=== PATIENT | female | born 1975 | race Caucasian/White ===

== ENCOUNTER → 2017-03-12 | Outpatient (CLI) | payer BC ==
--- NOTE | 2017-03-12 12:11 | MM ---
Reason for exam: clinical finding. Last mammogram was performed 10 years and 7 months ago. History: Family history of breast cancer in mother at age 42. Taking hormonal contraceptives for 2 years. Indicated problem(s): other indicated problem in the right breast. Physical Findings: Nurse Summary: 1cm nodule in the right breast at 4-5 o'clock (nurse amilcar). MG 3D Diag Mammo W/Cad JAIRON Bilateral CC, MLO, and XCCM view(s) were taken. Prior study comparison: July 31, 2006, CAD bilateral diagnostic mammogram. The breast tissue is heterogeneously dense. This may lower the sensitivity of mammography. No significant new findings when compared with previous films. These results were verbally communicated with the patient and result sheet given to the patient on 03/12/17. ASSESSMENT: Benign, BI-RAD 2 RECOMMENDATION: Routine screening mammogram of both breasts in 1 year.
--- NOTE | 2017-03-12 12:13 | USB ---
Reason for exam: clinical finding. History: Family history of breast cancer in mother at age 42. Taking hormonal contraceptives for 2 years. Indicated problem(s): palpable abnormality in the right breast. US Breast RT Right breast ultrasound includes all four quadrants, the retroareolar region and axilla. Finding demonstrates a 1.2 x 0.7 x 1.1cm lobular, mixed, hypoechoic lesion at palpable at 4 o'clock. These results were verbally communicated with the patient and result sheet given to the patient on 03/12/17. ASSESSMENT: Suspicious, BI-RAD 4 RECOMMENDATION: Aspiration of the right breast. Cyst aspiration scheduled for 03/23/17 at 8:00. PRELIMINARY REPORT CALLED AND FAXED TO DR. LESTER ON 03/12/17 /TMP.
== END ==
LOC: RADMAMWWP 11:06
PROVIDERS: ATTEND Obstetrics & Gynecology
DX: N63 Unspecified lump in breast (principal)
CPT/HCPCS: 76641; G0204; G0279

== ENCOUNTER → 2017-03-12 | Outpatient (CLI) | payer BC | LOC: RADUSWWP 11:25 | PROVIDERS: ATTEND Obstetrics & Gynecology | DX: N63 Unspecified lump in breast (principal); Z53.9 Procedure and treatment not carried out, unspecified reason ==

== ENCOUNTER → 2019-09-26 | Outpatient (CLI) | payer BC ==
--- NOTE | 2019-09-26 12:35 | MM ---
Reason for exam: screening (asymptomatic). Last mammogram was performed 2 years and 6 months ago. History: Family history of breast cancer in mother at age 42. Taking hormonal contraceptives for 2 years. Physical Findings: A clinical breast exam by your physician is recommended on an annual basis and results should be correlated with mammographic findings. MG 3D Screening Mammo W/Cad Bilateral CC and MLO view(s) were taken. Prior study comparison: March 12, 2017, bilateral MG 3d diag mammo w/cad JAIRON. July 31, 2006, CAD bilateral diagnostic mammogram. The breast tissue is extremely dense which could obscure a lesion on mammography. Finding: There are two intermediate concern, suspicious grouped/clustered calcifications in the upper outer quadrant, anterior position of the left breast. New finding since March 12, 2017. ASSESSMENT: Incomplete: need additional imaging evaluation, BI-RAD 0 RECOMMENDATION: Special view mammogram of the left breast. If lesion persists on supplemental views, image directed ultrasound is recommended. [facility] will attempt to contact patient to return for supplemental views and ultrasound if indicated.
--- NOTE | 2019-09-26 12:38 | MM ---
Reason for exam: additional evaluation requested from abnormal screening. Last mammogram was performed 2 years and 6 months ago. History: Family history of breast cancer in mother at age 42. Taking hormonal contraceptives for 2 years. MG 3D Work Up W/Cad LT CC with magnification, ML with magnification, and ML view(s) were taken of the left breast. Prior study comparison: March 12, 2017, bilateral MG 3d diag mammo w/cad JAIRON. The breast tissue is extremely dense which could obscure a lesion on mammography. Finding: There are two grouped/clustered, fine calcifications in the upper outer quadrant, anterior position of the left breast. These results were verbally communicated with the patient and result sheet given to the patient on 09/26/19. ASSESSMENT: Suspicious, BI-RAD 4 RECOMMENDATION: Stereotactic core biopsy of the left breast. Called Dr. Mariee's office with mammographic findings. Biopsy schedueld for 09/30/19 at 2:00. PRELIMINARY REPORT CALLED AND FAXED TO DR. MARIEE ON 09/26/19.
== END | disposition home or self-care (01) ==
LOC: RADMAMWWP 08:30
PROVIDERS: ATTEND Obstetrics & Gynecology
DX: Z12.31 Encounter for screening mammogram for malignant neoplasm of breast (principal); R92.8 Other abnormal and inconclusive findings on diagnostic imaging of breast; Z80.3 Family history of malignant neoplasm of breast
CPT/HCPCS: 77061; 77063; 77065; 77067

== ENCOUNTER → 2019-09-30 | Day surgery (SDC) | payer BC ==
[2019-09-30 13:22] VITALS: RESP 16
[2019-09-30 15:17] VITALS: BP 118/70; PULSE 71; TEMP 98.1
--- NOTE | 2019-10-02 08:01 | MM ---
Stereotactic Mammotome core biopsy left breast 2 sites. HISTORY: Calcifications at 2 sites The 2 groups of microcalcifications in question within the left breast were targeted by the undersigned. Procedure was performed by the undersigned. Informed consent was obtained and all of the patients questions were answered. The standard sterile technique was utilized and appropriate local anesthesia was obtained with 1% lidocaine x 2. Deep anesthesia was obtained with 1% lidocaine and epinephrine at each site. Mammotome probe was advanced and multiple core samples were obtained at each site and sent to pathology for interpretation. Microclip markers were deployed at the sites of biopsy. Post procedural mammogram demonstrates appropriate deployment of radiopaque clip markers. The patient tolerated the procedure well and left the department in stable condition. Pathology results are pending. IMPRESSION: Successful stereotactic core biopsy left breast at 2 sites with pathology results pending. Site labeled as upper outer quadrant approximately 4 cm from the nipple. Site B is also within the upper outer quadrant approximately 3.3 cm from the nipple. Pathology Results: High Risk A. LEFT BREAST, SITE A SUPERIOR, STEREOTACTIC CORE BIOPSY: Flat epithelial atypia/atypical ductal hyperplasia (FEA/ADH) with associated calcifications in a background of fibrocystic changes including sclerosing adenosis and fibrosis. See note. B. LEFT BREAST, SITE B ANTERIOR, STEREOTACTIC CORE BIOPSY: Flat epithelial atypia/atypical ductal hyperplasia (FEA/ADH) with associated calcifications in a background of fibrocystic changes including sclerosing adenosis and fibrosis. See note. Recommendation Surgical consult of the left breast. Excision recommended for FEA/ADH at both biopsy sites. [facility]
== END ==
LOC: RADMAMWWP 13:11
PROVIDERS: ATTEND Obstetrics & Gynecology
DX: N60.22 Fibroadenosis of left breast (principal); N60.32 Fibrosclerosis of left breast; N60.92 Unspecified benign mammary dysplasia of left breast
CPT/HCPCS: 88305; 19081; 19082; A4648; J2001

== ENCOUNTER → 2021-02-08 | Outpatient (CLI) | payer BC ==
--- NOTE | 2021-02-08 10:05 | XR ---
EXAMINATION TYPE: XR chest 2V DATE OF EXAM: 02/08/2021 COMPARISON: 09/27/2012 HISTORY: Preoperative spine surgery TECHNIQUE: Frontal and lateral views of the chest are obtained. FINDINGS: There is no focal air space opacity, pleural effusion, or pneumothorax seen. The cardiac silhouette size is within normal limits. The osseous structures are intact. IMPRESSION: No acute cardiopulmonary process.
[2021-02-08 10:48] LABS: Appearance,Urine Clear (Clear); Bacteria,Urine Occasional /hpf; Bilirubin,Urine Negative (Negative); Blood,Urine Negative (Negative); Color,Urine Yellow; Glucose,Urine (UA) Negative (Negative); Ketones,Urine Negative (Negative); Leukocyte Esterase,Urine Small (Negative); Mucus,Urine Occasional /hpf; Nitrite,Urine Negative (Negative); PH, Urine 5.5 (5.0-8.0); Protein,Urine Negative (Negative); RBC,Urine 1 /hpf (0-5); Squamous Epithelial Cell,Urine 3 /hpf (0-4); Urobilinogen,Urine <2.0 mg/dL (<2.0); WBC,Urine 3 /hpf (0-5)
[2021-02-08 11:11] LABS: Prothrombin Time 10.5 sec (9.0-12.0)
[2021-02-08 11:14] LABS: Partial Thromboplastin Time 20.3 sec (22.0-30.0)
[2021-02-08 16:05] LABS: HCT 44.6 % (37.2-46.3); HGB 15.1 g/dL (12.0-15.0); MCH 31.6 pg (27.0-32.0); MCHC 33.9 g/dL (32.0-37.0); MCV 93.3 fL (80.0-97.0); Platelet Count 347 X 10*3/uL (140-440); RBC 4.78 X 10*6/uL (4.10-5.20); RDW 12.8 % (11.5-14.5); WBC 10.11 X 10*3/uL (4.50-10.00)
[2021-02-08 19:15] LABS: African American GFR (CKD) 102.5 (60.0-200.0); Anion Gap 14.3 mmol/L (4.00-12.00); Calcium 9.8 mg/dL (8.7-10.3); Carbon Dioxide 20.7 mmol/L (21.6-31.8); Globulin 2.5 g/dL (1.6-3.3); Non-African American GFR(CKD) 88.4 (60.0-200.0); Potassium 4.2 mmol/L (3.5-5.5); Total Bilirubin 0.6 mg/dL (0.3-1.2); Total Protein 7.5 g/dL (6.2-8.2)
== END | disposition home or self-care (01) ==
LOC: LABWHC1 09:31
PROVIDERS: ATTEND Orthopaedic Surgery Orthopaedic Surgery of the Spine
DX: Z01.818 Encounter for other preprocedural examination (principal); M50.223 Other cervical disc displacement at C6-C7 level; I45.10 Unspecified right bundle-branch block; R94.31 Abnormal electrocardiogram [ECG] [EKG]
CPT/HCPCS: 36415; 71046; 80053; 81001; 85027; 85610; 85730; 93005